=== PATIENT | female | born 1955 | race Caucasian/White ===

== ENCOUNTER 2023-07-21 06:14 | Day surgery (SDC) | payer MEDICARE, SELFPAY ==
[2023-07-21] VITALS (7 sets, daily range): BP systolic 130–164; BP diastolic 76–89; PULSE 69–75; RESP 12–16; TEMP 36.7; O2SAT 95–98; BMI 28.8
--- NOTE | 2023-07-21 07:27 | CRLHL7_ITS ---
For Patients: As a result of the Cures Act, medical imaging exams and procedure reports are released immediately into your electronic medical record. You may view this report before your referring provider. If you have questions, please contact your health care provider. Indication: LEFT RING FINGER FOREIGN BODY REMOVAL Technique: Three fluoroscopic images of the left ring finger. Fluoroscopic time 3.1 seconds. IMPRESSION: Fluoroscopic guidance for foreign body removal. Dictated by Jose A Valdez MD @ 07/21/2023 9:51:46 AM (Electronically Signed)
[2023-07-21] MEDS: lidocaine HCL 2 % MULTIDOSE 20 ML VIAL INJECTION (07:40)
--- NOTE | 2023-07-21 07:50 | P.ORPRC_ITS ---
Procedure Note Date of procedure: 07/21/23 Procedure: SURGEON: [place] MD INGREDIENT SPECIALIST: SHARMILA Ocasio PREOPERATIVE DIAGNOSIS: Left hand, ring finger retained foreign body POSTOPERATIVE DIAGNOSIS: Left hand, ring finger retained foreign body NAME OF OPERATION: Left hand ring finger foreign body removal ANESTHESIA: Local ESTIMATED BLOOD LOSS: 0 mL COMPLICATIONS: None SPECIMENS: None DRAINS: None PREOPERATIVE ANTIBIOTICS: None INDICATIONS: The patient is a 40-hory-ste-year-old female who had an embroidery needle break off in the dorsum of her left hand, ring finger. This is painful and tender when bumped. Therefore, foreign body removal was recommended. The risks, benefits and expected outcomes were discussed in detail. These included but were not limited to: Infection, bleeding, injury to blood vessel or nerve, venous thromboembolism. All questions were answered to their satisfaction. PROCEDURE: The patient was placed supine on the operating room table. A digital block was placed with 0.25% Marcaine without epinephrine, 1% lidocaine w ithout epinephrine. The left upper extremity was prepped and draped in the usual sterile fashion. A tournicot was used. [A longitudinal incision was made at the entry site over the dorsum of the fi nger midline, just proximal to the DIP joint. Subcutaneous dissection was taken with the tenotomy scissors. The foreign body was located over the radial side of the incision. It was removed intact. Intraoperative C-arm images were obtained to confirm it was removed in its entirety. The wound was irrigated with normal saline. Skin was closed with a 4-0 nylon in a simple interrupted fashion. A dry dressing was applied. Sponge and needle counts were correct x2. The patient tolerated the procedure well. There were no apparent complications. They were carefully transferred to the hospital bed and taken to the postanesthesia care unit in satisfactory condition. PLAN: The patient will be discharged to home. Use of the hand as tolerates. They will follow up in the office in 2 weeks for a wound check.
[2023-07-21] MEDS: BUPIVACAINE 0.5% 30 ML INJECTION (07:58)
== END 2023-07-21 08:10 | disposition home or self-care (01) ==
PROVIDERS: PCP Internal Medicine; Visit Provider Orthopaedic Surgery
PROC: (CPT 10121; principal; 2023-07-21 07:15)
DX: S61.245A Puncture wound with foreign body of left ring finger without damage to nail, initial encounter (principal); W45.8XXA Other foreign body or object entering through skin, initial encounter
CPT/HCPCS: 10121; 73140; 76000; J0665